=== PATIENT | female | born 1945 | race Hispanic/Latino ===

== ENCOUNTER 2018-11-30 10:03 | Outpatient (CLI) | payer MEDICARE ==
--- NOTE | 2018-11-30 11:03 | MMO ---
Bilateral MAMMO Bilat Diag [facility]. CLINICAL HISTORY: Patient is 73 years old and is seen for diagnostic exam. The patient has the following family history of breast cancer: sister, at age 53, BONE - LIVER. The patient has no personal history of cancer. The patient has a history of right Excisional Biopsy - benign - ?? pt doesn't remember. VIEWS: The views performed were: bilateral craniocaudal with tomosynthesis; bilateral mediolateral oblique with tomosynthesis; and bilateral mediolateral. FILMS COMPARED: The present examination has been compared to prior imaging studies performed at [facility] on 04/03/2015, 04/22/2016, 05/17/2017 and 11/30/2018. MAMMOGRAM FINDINGS: There are scattered fibroglandular densities. Finding 1: There are no mammographic or sonographic abnormalities in the area of palpable concern. The patient is referred back to her clinician. Negative imaging findings should not preclude biopsy if clinical findings are suspicious. Finding 2: There are stable benign appearing calcifications seen in both breasts. There are no suspicious masses, suspicious calcifications, or new areas of architectural distortion. IMPRESSION: FINDING 1: THERE ARE NO MAMMOGRAPHIC ABNORMALITIES IN THE AREA OF PALPABLE CONCERN. THE PATIENT IS REFERRED BACK TO HER CLINICIAN. NEGATIVE IMAGING FINDINGS SHOULD NOT PRECLUDE BIOPSY IF CLINICAL FINDINGS ARE SUSPICIOUS. A ROUTINE FOLLOW-UP MAMMOGRAM IN 1 YEAR IS RECOMMENDED. THE RESULTS OF THIS EXAM WERE SENT TO THE PATIENT. ACR BI-RADS Category 2 - Benign finding MAMMOGRAPHY NOTE: 1. A negative mammogram report should not delay a biopsy if a dominant of clinically suspicious mass is present. 2. Approximately 10% to 15% of breast cancers are not detected by mammography. 3. Adenosis and dense breasts may obscure an underlying neoplasm.
--- NOTE | 2018-11-30 11:34 | ULT ---
LIMITED LEFT BREAST ULTRASOUND: DATE: 11/30/2018. PROVIDED CLINICAL HISTORY: Left breast palpable abnormality. FINDINGS: Limited sonographic interrogation was performed of the left breast in the region of palpable concern. The sonographic appearance of the breast parenchyma in this region is normal. IMPRESSION: BIRADS CATEGORY 1 - NEGATIVE. Negative imaging findings should not preclude further evaluation of a clinically suspicious area. The patient is referred back to her clinician. POS: OFF
== END 2018-11-30 10:04 | disposition home or self-care (01) ==
LOC: BICMAMMO 10:03
PROVIDERS: ATTEND Obstetrics & Gynecology
DX: N63.0 Unspecified lump in unspecified breast (principal); Z80.3 Family history of malignant neoplasm of breast; Z80.0 Family history of malignant neoplasm of digestive organs; Z80.8 Family history of malignant neoplasm of other organs or systems
CPT/HCPCS: 76642; 77066; G0279

== ENCOUNTER 2018-12-25 17:00 | Outpatient (CLI) | payer MEDICARE | END 2018-12-25 17:01 | LOC: SLEEPLAB 17:00 | PROVIDERS: ATTEND Otolaryngology Otolaryngic Allergy | DX: G47.33 Obstructive sleep apnea (adult) (pediatric) (principal); G47.9 Sleep disorder, unspecified; R06.83 Snoring | CPT/HCPCS: 95806 ==

== ENCOUNTER 2019-03-29 10:31 | Outpatient (CLI) | payer MEDICARE ==
[2019-03-29 11:59] LABS: Hemoglobin 12.1 g/dL (12.0-16.0); Mean Corpuscular Hemoglobin 30.1 pg (27.0-31.0); Mean Corpuscular Volume 88.4 fL (78.0-98.0); Mean Platelet Volume 6.5 fL (7.4-10.4); Platelet Count 370 thou/uL (130-400); RBC Distribution Width 11.7 % (11.5-14.5); Red Blood Cell (RBC) Count 4.02 mill/uL (4.20-5.40); White Blood Cell (WBC) Count 6.5 thou/uL (4.8-10.8)
[2019-03-29 12:23] LABS: ALT (SGPT) 26 U/L (8-55); AST (SGOT) 22 U/L (5-34); Albumin 4.6 g/dL (3.4-4.8); Alkaline Phosphatase 62 U/L (40-110); Anion Gap 10 mmol/L (10-20); BUN (Urea Nitrogen) 20 mg/dL (9.8-20.1); Bilirubin, Total 0.3 mg/dL (0.2-1.2); Calc. Creatinine Clearance 0 mL/min (70-130); Carbon Dioxide 30 mmol/L (23-31); Chloride 104 mmol/L (98-107); Estimated GFR-MDRD 69; Globulin 2.6 g/dL (2.4-3.5); Glucose 105 mg/dL (83-110); Potassium 4.3 mmol/L (3.5-5.1); Protein, Total 7.2 g/dL (6.0-8.3); Sodium 140 mmol/L (136-145)
--- NOTE | 2019-03-29 23:53 | EKG ---
Test Reason : Blood Pressure : / mmHG Vent. Rate : 081 BPM Atrial Rate : 081 BPM P-R Int : 146 ms QRS Dur : 080 ms QT Int : 392 ms P-R-T Axes : 057 -07 029 degrees QTc Int : 455 ms Normal sinus rhythm Nonspecific T wave abnormality Abnormal ECG When compared with ECG of 21-SEP-2013 12:10, No significant change was found Confirmed by Tiara WATTS ([id number]) on 03/29/2019 11:52:48 PM Referred By: NELY Confirmed By:Tiara WATTS
== END 2019-03-29 10:32 | disposition home or self-care (01) ==
LOC: LABBT 10:31
PROVIDERS: ATTEND Obstetrics & Gynecology
DX: Z01.818 Encounter for other preprocedural examination (principal); N81.2 Incomplete uterovaginal prolapse
CPT/HCPCS: 80053; 85027; 86850; 86900; 86901; 93005; 93010

== ENCOUNTER 2019-04-02 05:53 | Inpatient (IN) | payer MEDICARE ==
[2019-03-29 10:58] VITALS: BMI 29.0
--- NOTE | 2019-03-29 21:50 | HP ---
DATE OF PLANNED SURGERY: 04/02/2019. HISTORY OF PRESENT ILLNESS: Ms. Neff is a 73-year-old Latin-La[place] female, who has symptoms of pelvic prolapse and urinary incontinence. She has issues with vaginal bulging and also where she has both urge and stress incontinence issues. Her urine continuously flow out. We did try anticholinergics for some of the symptomatology including Myrbetriq and VESIcare. She did not tolerate these medications due to elevation in her glucose levels due to her diabetes. Due to this, she did have formal urodynamic studies and the findings were consistent with an intrinsic sphincter defect with urethral pressure profile of 22. PAST MEDICAL HISTORY: Noted for adult onset diabetes, hyperlipidemia, chronic hypertension, urinary incontinence. PAST SURGICAL HISTORY: Cataract surgery and breast biopsy. ALLERGIES: HAS NO KNOWN DRUG ALLERGIES. CURRENT MEDICATIONS: Fenofibric 135 mg tablet daily, glimepiride 4 mg tablet one p.o. daily for diabetes, Humalog subcu premeal sliding scale, metformin 1000 mg tablet daily, Synthroid 100 mcg tablet daily, tablet daily, Victoza injection daily 1.8 mg. FAMILY HISTORY: Heart disease. No breast or ovarian cancer reported. Diabetes in the family. Hypertension in the family. SOCIAL HISTORY: Nonsmoker. . OBSTETRICAL HISTORY: Two spontaneous vaginal deliveries. Normal Pap smear back in 2018. PHYSICAL EXAMINATION: VITAL SIGNS: The patient's height 5 feet, weight 149 with BMI 29.1, blood pressure 136/72, pulse 76, O2 saturation on room air 98%, respiratory rate 18. HEENT: Within normal limits. CHEST: Clear to auscultation. HEART: Regular rate and rhythm. S1 and S2 heart sounds. No murmurs, rubs, or gallops. ABDOMEN: Soft, nontender, nondistended with no palpable masses. PELVIC: Vulva and vagina had no lesions. She has a grade 2 cystocele with a hypermobile UV angle. No abnormal discharge to the cervix seen. Uterus was small and mobile with grade 2 prolapse. Adnexa, nontender with no masses. ASSESSMENT: This is a 73-year-old Latin-La[place] female with diabetes with a grade 2 cystocele and uterine prolapse with urinary incontinence issues. She has what appears to be more of an intrinsic sphincter defect. She had some urge incontinence symptoms, but was not been able to tolerate any anticholinergic agent or Myrbetriq due to abnormalization of her glucose levels and also hypertension. The urodynamics showed her to have a postvoid residual less than 25 mL. She had no abnormal uterine contractions during the procedure. Her urethral pressure profile was 22, consistent with intrinsic sphincter defect. PLAN: Plan is to proceed with robotic-assisted total laparoscopic hysterectomy with BSO with anterior repair along with Advantage Fit TVT and cystoscopy. Risks and benefits of procedure were discussed in detail. She is set for surgery on 04/02. Job ID: [id number]
[2019-04-02] MEDS ORDERED: Gabapentin 300 MG CAP ONE (06:11)
[2019-04-02] MEDS ORDERED: Famotidine/PF 20 mg/2ml Vial ONE (06:11)
[2019-04-02] MEDS ORDERED: CeleCOXIB 100 MG CAP ONE (06:11)
[2019-04-02] MEDS ORDERED: Fentanyl 100 MCG/2 ML VIAL ONE (06:36)
[2019-04-02] MEDS ORDERED: Lidocaine 1% w/Epinephrine 1:100K 20 ML VIAL ONE (06:48)
[2019-04-02] MEDS ORDERED: Bupivacaine HCl 0.5%/Epinephrine 1:200,000/PF 30 ml Vial ONE (06:48)
[2019-04-02] MEDS ORDERED: Midazolam HCl 2 mg/2 ml Vial ONE (07:07)
[2019-04-02] MEDS ORDERED: PACU-Morphine 4MG/ML VIAL SLOW IVP PRN (09:41)
[2019-04-02] MEDS ORDERED: Promethazine HCl 25 MG/ML VIAL SLOW IVP PRN (09:41)
[2019-04-02] MEDS ORDERED: Meperidine HCl/PF 25 MG/ML VIAL SLOW IVP PRN (09:41)
[2019-04-02] MEDS ORDERED: Promethazine HCl 25 MG/ML VIAL IM PRN ×2 (09:41→10:05)
[2019-04-02] MEDS ORDERED: diphenhydrAMINE 25 MG CAP PO PRN (10:05)
[2019-04-02] MEDS ORDERED: Ondansetron PF 4 MG/2 ML Vial IVP PRN (10:05)
[2019-04-02] MEDS ORDERED: Dextrose 50% Abboject 50 ML SYRINGE SLOW IVP PRN (10:05)
[2019-04-02] MEDS ORDERED: Morphine 2 MG/ML SYRINGE SLOW IVP PRN (10:05)
[2019-04-02] MEDS ORDERED: Bisacodyl 10 MG SUPP PR PRN (10:05)
[2019-04-02] MEDS ORDERED: Zolpidem Tartrate 5 MG TAB PO PRN (10:05)
[2019-04-02] MEDS ORDERED: Simethicone Chewable 80 MG TAB PO PRN (10:05)
[2019-04-02] MEDS ORDERED: Dextrose 5% in Water 1,000 ML IV PRN (10:05)
[2019-04-02] MEDS ORDERED: Insulin Regular 300 UNITS/3 ML VIAL SC PRN (10:05)
[2019-04-02] MEDS ORDERED: traMADol HCl 50 MG TAB PO PRN ×2 (10:05)
[2019-04-02] MEDS ORDERED: Meperidine HCl/PF 25 MG/ML VIAL ONE (11:23)
--- NOTE | 2019-04-02 12:08 | OP ---
DATE OF PROCEDURE: 04/02/2019 PREOPERATIVE DIAGNOSES: 1. A 73-year-old female with grade 2 uterine prolapse, grade 2 cystocele. 2. Genuine stress incontinence with low urethral pressure profile numbers. POSTOPERATIVE DIAGNOSES: 1. A 73-year-old female with grade 2 uterine prolapse, grade 2 cystocele. 2. Genuine stress incontinence with low urethral pressure profile numbers. PROCEDURES PERFORMED: 1. Robotic total laparoscopic hysterectomy with bilateral salpingo-oophorectomy. 2. Advantage Fit TVT with cysto. WORK TICKET DISTRIBUTOR SURGEON: Vilma Casrto PA-C ESTIMATED BLOOD LOSS: 50 mL. ANESTHESIA: General endotracheal. PATHOLOGY: Uterus, cervix, tubes, and ovaries. FINDINGS: 1. Postmenopausal uterus, bilateral tubes, and ovaries. 2. Floppy bladder noted intraperitoneally. 3. Cystoscopy of bladder post TVT procedure showed no evidence of mucosal injury, it was watertight with no evidence of perforation of mesh into the bladder tissue. Bilateral UOs noted with efflux visualized. Clear urine present. DISPOSITION: Recovery room, stable. DESCRIPTION OF PROCEDURE: The patient previously received informed consent in regard to surgery. She was taken back to the operating room, where she received a general endotracheal anesthetic agent without complications. She was placed in the dorsal lithotomy position with the use of Souleymane stirrups. At this time, then she was prepped and draped in usual sterile fashion. A side-arm speculum was placed in the vagina. The cervix was grasped with single-tooth tenaculum. The uterus sounded to 7 cm. A size 6 cm DELMY uterine manipulator with 3.5 cm cervical cup was placed. Tenaculum and speculum had been removed. Steele catheter had been placed during this time. Attention was then turned to the abdomen, where perspective trocar sites were infiltrated with 0.5% Marcaine with epinephrine. A 12-mm supraumbilical incision was made. Veress needle was entered into the peritoneal cavity. The patient's pressure was less than 5 mm. The abdomen was insufflated with the patient's pressure of 15 with approximately 4.5 L of gas. Veress needle was removed. A size 12-mm trocar was then placed, and the laparoscope was introduced through trocar sleeve confirming proper entry. Additional bilateral lower quadrant 8-mm trocars were placed along with the right upper quadrant 11-mm food trades assistants port. The patient was placed in Trendelenburg position. Robot was docked. I then scrubbed and proceeded to carry out the surgery with operative console while my assistants remained at the bedside. The uterus was elevated by my food trades assistants. The left IP ligament was identified. It was coagulated, hugging close to the ovary with bipolar fenestrated cautery. This was transected and serial coagulation of the broad ligament hugging close to uterine specimen was carried out until the left round ligament was reached. It was coagulated and transected. The anterior leaf of the broad ligament was entered and the vesicouterine peritoneum was dissected in layering technique dissecting the bladder past cervical vaginal angles. Uterine vessels on the left side were skeletonized and coagulated in the internal cervical os region. This was then carried out on the right side. Again, the right IP ligament was identified. It was coagulated and transected. Serial coagulation of the broad ligament hugging close to the uterus was carried out until the right round ligament was reached. It was coagulated and transected. The anterior leaf of the broad ligament was then entered and vesicouterine peritoneum again was incised in a layering technique dropping the bladder away from the cervical vaginal angle. The internal cervical os areas had been skeletonized with uterine vessels and they were coagulated and adhered to. The bladder was distended to ensure that the bladder had been safely dissected past the cervical vaginal angle and this was confirmed. Then, the anterior colpotomy was created starting at the 12 o'clock to 3 o'clock and 12 o'clock to 9 o'clock position. The uterus was then elevated. It was completed from 6 o'clock to 9 o'clock and 6 o'clock to 3 o'clock. The specimen was delivered into the vaginal vault. The monopolar scissor was removed and a Arcadio needle drivers was placed in through my port. The vaginal cuff was coagulated in any oozing areas with bipolar fenestrated cautery. Then, my food trades assistants brought in a Stratafix suture and the vaginal cuff was closed in full-thickness closure from the right angle towards the left angle back towards the midline. The suture was cut and removed in the right upper quadrant food trades assistants port. The pelvis was irrigated and inspected. Pedicle sites were all confirmed to be hemostatic. Bilateral ureteral peristalsis was visualized laparoscopically. We then undocked the robot. Trocar sleeves were removed. A deep stitch of 0 Vicryl was placed in a [id number] stitch fashion in the umbilical fascial defect. The remainder of the trocar sites were closed with 4-0 Monocryl subcuticular with Dermabond. We then positioned the patient in dorsal lithotomy position for vaginal surgery. I initially then placed the Steele catheter with bag in place. The urethra was identified and just above the symphysis pubis, behind the symphysis pubis bone, this portion was marked with a marking pen and then 2 cm lateral to midline on the symphysis pubis was marked. The area adherent was hydrodissected with approximately 60 mL of sterile saline with a spinal needle. Then, we had placed a weighted speculum in the vagina and the midportion of the urethra was identified by palpating the Steele bulb. Allis clamps were placed superior and inferiorly to this. A 1.5 cm vertical incision in the mucosa was made in the midline urethral area. The edges were grasped and then these were dissected as submucosal tunnel in the direction of the each intersection of the ischial pubic ramus and the symphysis pubis. The Metzenbaum scissors were perforated in the space of Retzius bilaterally. We then positioned the legs more of a level position in-line with the axilla to decrease the extreme flexion. I then did dimple Advantage Fit TVT trocar and loaded it with the TVT mesh. The trocar was then brought through the previously dissected submucosal tunnel on the patient's left side. My assistants were near the symphysis pubis area. I then placed the handle underneath the symphysis bone and then dropped the handle extreme directions staying in-line with the axilla and the previously marked exit site. My food trades assistants felt the trocar moving through this area and we popped through the previously marked site. The trocar was then backed out in the end of the mesh with a plastic marking that was grasped with a Ibis clamp. This was repeated on the right side. I redirected the trocar 2 times due to an angle that was improved by upping the patient's right leg to drop the symphysis and then we were able to place the trocar in the appropriate previously marked spot. Again, the trocar was pushed through the skin and then that was backed out as my food trades assistants grasped plastic portion of the mesh. Once this had been done, we pulled the plastics up slightly more and then I brought the 70-degree cystoscope in. At this time, the Steele guide had been removed that I had placed this during the placement of the trocars deflecting the bladder to the opposite direction, that Steele guide was removed and then the 70-degree cystoscope was placed. The bladder was distended. There was no evidence of any mesh placement through the bladder wall. The bladder wall was intact. Ureteral orifices were visualized with efflux noted. Cystoscope was removed. Steele catheter was replaced. We then pulled up the TVT mesh with a Enamorado scissor underneath the mid urethra for tension testing and then the mesh was lined up. There was no twist to it. We then cut the plastic lock and the plastic sleeves were removed pulling upward by my assistants. The mesh was then placed on tension over the Enamorado scissor and Enamorado scissor was then removed. The mucosa over this area of the vagina was closed with 2 [id number] stitches of 2-0 Vicryl. After the TVT had been placed to reassess the anterior vaginal vault and there was minimal cystocele remaining from the suspension of the TVT. Therefore, we decided not to attempt the anterior repair, which would be difficult due to the minimization of the defect of the cystocele after the mesh had been secured. The cuffs were secured and hemostatic. Clear urine was draining from the Steele catheter. A moistened Kerlix was placed in the vaginal vault for packing. The patient was awakened from anesthesia and transferred to recovery room in stable condition. Job ID: [id number]
[2019-04-02] MEDS: Acetaminophen 1,000 MG in Premix Bag 1 BAG IVPB SCH ×2 (14:09→20:01)
[2019-04-02] MEDS: Ibuprofen 600 MG TAB PO SCH (20:01)
[2019-04-02] MEDS ORDERED: Insulin Glargine 44 UNITS in Pre-Filled Syringe 1 EACH SC SCH (21:00)
[2019-04-02] MEDS ORDERED: Fenofibrate Nanocrystallized 145 MG TAB PO SCH (21:00)
[2019-04-03] MEDS: Acetaminophen 1,000 MG in Premix Bag 1 BAG IVPB SCH ×2 (02:17→08:43)
[2019-04-03] MEDS: Ibuprofen 600 MG TAB PO SCH (04:44)
[2019-04-03 05:24] LABS: Hemoglobin 10.2 g/dL (12.0-16.0); Mean Corpuscular HGB CONC 34.4 g/dL (32.0-36.0); Mean Corpuscular Hemoglobin 30.9 pg (27.0-31.0); Mean Corpuscular Volume 89.6 fL (78.0-98.0); Mean Platelet Volume 6.1 fL (7.4-10.4); Platelet Count 300 thou/uL (130-400); RBC Distribution Width 11.8 % (11.5-14.5); White Blood Cell (WBC) Count 7.9 thou/uL (4.8-10.8)
[2019-04-03] MEDS ORDERED: Levothyroxine Sodium 100 MCG TAB PO SCH (06:00)
[2019-04-03] MEDS ORDERED: metFORMIN 500 MG TAB PO SCH (08:00)
--- NOTE | 2019-04-03 08:13 | PDOC.EVN ---
Event Note - Event Note Event Note: Tolerating diet. Ambulating/voiding. O:AFVSS. PVR <50 ml...Abdomen is soft snd non distended. trochar sites clean and dry. hct 29.6 % A/P: post op day 1 from robotic tlh/bso/retropubic tvt.. Initial pvr's are progresing well. Recheck again to insure proper bladder emptying well. Plan for discharge home today... F/u 2 and 6 weeks.
[2019-04-03] MEDS ORDERED: Valsartan 80 MG TAB PO SCH (09:00)
[2019-04-03] MEDS ORDERED: LIRAGLUTIDE 1.8 UNIT SC SCH (09:00)
[2019-04-03] MEDS ORDERED: HumaLOG 300 UNITS/3 ML VIAL SC SCH (09:00)
[2019-04-03] MEDS ORDERED: INSULIN GLARGINE HUM REC ANLOG 55 UNIT SC SCH (09:00)
[2019-04-03] MEDS ORDERED: Amlodipine 10 MG TAB PO SCH (09:00)
[2019-04-03] MEDS ORDERED: Hydrochlorothiazide 25 MG TAB PO SCH (09:00)
[2019-04-03] MEDS ORDERED: Aspirin 81 mg Enteric Coated Tablet PO SCH (09:00)
[2019-04-03] MEDS ORDERED: Glimepiride 4 MG TAB PO SCH (09:00)
[2019-04-03 12:35] VITALS: BP 122/57; TEMP 96.8
--- NOTE | 2019-04-03 13:12 | DIS ---
DATE OF ADMISSION: 04/02/2019 DATE OF DISCHARGE: 04/03/2019 DIAGNOSES: 1. Symptomatic pelvic prolapse with cystourethrocele and uterine prolapse. 2. Stress urinary incontinence. PROCEDURES PERFORMED: 1. Robotic total laparoscopic hysterectomy and bilateral salpingo-oophorectomy. 2. Advantage Fit TVT with cystoscopy. SUMMARY OF HOSPITAL COURSE: Ms. Neff is a 73-year-old female, who had grade 2 uterine prolapse and grade 2 to 3 cystocele with urethral hypermobility with urinary incontinence. She underwent a robotic TLH-BSO with Advantage Fit TVT and cystoscopy on 04/02/2019. During the operative procedure after the TVT procedure had been performed following the hysterectomy, there was minimal anterior cystocele remaining. Therefore, anterior repair was not carried out. Postoperatively, the patient has done well. She is ambulating and voiding without difficulty, had a postvoid residual checks x3, which were all less than 50 mL with good voids of 200 to 300 plus. Pain control was adequate with tramadol and ibuprofen. Her glycemic control was managed well with sliding scale moderate range insulin with levels in the 100s. She was discharged the morning of postop day #1 and will resume her routine labs for her diabetes care along with hypertension. She has a followup scheduled in 2 and 6 weeks postoperatively. Pathology is pending at the time of this dictation. Job ID: [id number]
== END 2019-04-03 12:45 | disposition home or self-care (01) | DRG 743 ==
LOC: SDC 05:53 → 3SE 11:50
PROVIDERS: ADMIT Obstetrics & Gynecology; ATTEND Obstetrics & Gynecology
PROC: 0UT24ZZ Resection of Bilateral Ovaries, Percutaneous Endoscopic Approach (ICD-10-PCS; principal; 2019-04-02)
PROC: 0UT74ZZ Resection of Bilateral Fallopian Tubes, Percutaneous Endoscopic Approach (ICD-10-PCS; 2019-04-02)
PROC: 0UT94ZZ Resection of Uterus, Percutaneous Endoscopic Approach (ICD-10-PCS; 2019-04-02)
PROC: 8E0W4CZ Robotic Assisted Procedure of Trunk Region, Percutaneous Endoscopic Approach (ICD-10-PCS; 2019-04-02)
PROC: 0TJB8ZZ Inspection of Bladder, Via Natural or Artificial Opening Endoscopic (ICD-10-PCS; 2019-04-02)
PROC: 0TU Urinary System, Supplement (ICD-10-PCS; 2019-04-02)
DX: N81.4 Uterovaginal prolapse, unspecified (principal); E78.5 Hyperlipidemia, unspecified; I10 Essential (primary) hypertension; R32 Unspecified urinary incontinence; N72 Inflammatory disease of cervix uteri; N81.89 Other female genital prolapse; Z98.49 Cataract extraction status, unspecified eye; N39.3 Stress incontinence (female) (male)
CPT/HCPCS: 36415; 36416; 85027; 88307; J0131; J0670; J0690; J1815; J2175; J2250; J3010; S0028

== ENCOUNTER 2019-08-03 12:01 | Emergency (ER) | payer MEDICARE ==
--- NOTE | 2019-08-03 13:29 | RAD ---
XR Knee Lt 4 View STANDARD HISTORY: Fall, left knee pain FINDINGS: No fracture or dislocation is identified. A joint effusion is noted.
--- NOTE | 2019-08-03 13:30 | RAD ---
( XR Hip Lt 2-3 View HISTORY: Fall, left hip pain FINDINGS: No fracture or dislocation is identified.
--- NOTE | 2019-08-03 13:32 | RAD ---
XR Elbow Lt 4 View STANDARD HISTORY: Fall, left elbow pain FINDINGS: No fracture or dislocation is identified. A tiny olecranon spur is present
[2019-08-03] MEDS ORDERED: HYDROcodone/Acetaminophen 5/325 mg Tablet ONE (14:06)
== END 2019-08-03 14:08 | disposition home or self-care (01) ==
LOC: ERS 12:01
DX: S70.02XA Contusion of left hip, initial encounter (principal); S50.312A Abrasion of left elbow, initial encounter; S80.02XA Contusion of left knee, initial encounter; E11.9 Type 2 diabetes mellitus without complications; E03.9 Hypothyroidism, unspecified; I10 Essential (primary) hypertension; W19.XXXA Unspecified fall, initial encounter

== ENCOUNTER 2020-01-22 13:48 | Outpatient (CLI) | payer MEDICARE ==
--- NOTE | 2020-01-22 15:28 | MRI ---
MRI RIGHT SHOULDER: DATE: 01/22/2020. PROVIDED CLINICAL HISTORY: Right shoulder pain. FINDINGS: Evaluation is extremely limited by patient motion. There is evidence for full-thickness tearing of the conjoined tendon. The long head biceps tendon is insufficiently visualized for comment with regard to integrity. There is a physiologic amount of gl enohumeral joint fluid. There is greater than physiologic subacromial subdeltoid bursal fluid. No g ross labral or articular cartilage abnormality is evident. No definite focal concerning regional mar row or muscular signal abnormality. Acromioclavicular joint osteoarthrosis without significant mass effect upon the subjacent supraspinatus. Rotator cuff muscular volume appears preserved. IMPRESSION: 1. Very limited scan due to motion. 2. 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 3. Acromioclavicular joint osteoarthrosis. POS: BREANN
== END 2020-01-22 13:49 | disposition home or self-care (01) ==
LOC: BICMRI 13:48
PROVIDERS: ATTEND Orthopaedic Surgery
DX: M75.101 Unspecified rotator cuff tear or rupture of right shoulder, not specified as traumatic (principal); M19.011 Primary osteoarthritis, right shoulder; S46.011A Strain of muscle(s) and tendon(s) of the rotator cuff of right shoulder, initial encounter

== ENCOUNTER 2020-03-14 11:54 | Outpatient (CLI) | payer MEDICARE ==
--- NOTE | 2020-03-14 12:51 | BD ---
EXAM: Bone densitometry using DEXA HISTORY: 74 yo female. Screening for postmenopausal osteoporosis FINDINGS: L1--bone mineral density 0.825 g/sq cm; T score -1.5 ; Z score 0.5 L2--bone mineral density 0.893 g/sq cm; T score -1.2 ; Z score 1.0 L3--bone mineral density 0.867 g/sq cm; T score -2.0 ; Z score 0.4 L4--bone mineral density 0.965 g/sq cm; T score -0.9 ; Z score 1.5 Total L1-L4--bone mineral density 0.891 g/sq cm; T score -1.4 ; Z score 0.8 Left femoral neck--bone mineral density0.550; T score -2.7 ; Z score -0.8 Total proximal left femur--bone mineral density 0.733; T score -1.7 ; Z score -0.1 The 10 year fracture risk for a major osteoporotic fracture is 25% and for a hip fracture is 7.1%. IMPRESSION: Osteoporosis
--- NOTE | 2020-03-14 14:25 | MMO ---
Bilateral MAMMO Bilat Screen [facility]. CLINICAL HISTORY: Patient is 74 years old and is seen for screening. The patient has the following family history of breast cancer: sister, at age 53, BONE - LIVER. The patient has no personal history of cancer. The patient has a history of right Excisional Biopsy - benign - ?? pt doesn't remember. VIEWS: The views performed were: bilateral craniocaudal with tomosynthesis and bilateral mediolateral oblique with tomosynthesis. FILMS COMPARED: The present examination has been compared to prior imaging studies performed at [facility] on 04/22/2016, 05/17/2017 and 11/30/2018. This study has been interpreted with the assistance of computer-aided detection. MAMMOGRAM FINDINGS: There are scattered fibroglandular densities. Benign calcifications are noted bilaterally. There are no suspicious masses, suspicious calcifications, or new areas of architectural distortion. IMPRESSION: THERE IS NO MAMMOGRAPHIC EVIDENCE OF MALIGNANCY. A ROUTINE FOLLOW-UP MAMMOGRAM IN 1 YEAR IS RECOMMENDED. THE RESULTS OF THIS EXAM WERE SENT TO THE PATIENT. ACR BI-RADS Category 2 - Benign finding MAMMOGRAPHY NOTE: 1. A negative mammogram report should not delay a biopsy if a dominant of clinically suspicious mass is present. 2. Approximately 10% to 15% of breast cancers are not detected by mammography. 3. Adenosis and dense breasts may obscure an underlying neoplasm. Reported by: SHANNAN BACK MD Electonically Signed: [id number]
== END 2020-03-14 11:55 | disposition home or self-care (01) ==
LOC: BICMAMMO 11:54
PROVIDERS: ATTEND Family Medicine
DX: Z12.31 Encounter for screening mammogram for malignant neoplasm of breast (principal); M81.0 Age-related osteoporosis without current pathological fracture; M85.88 Other specified disorders of bone density and structure, other site; Z80.8 Family history of malignant neoplasm of other organs or systems; Z80.3 Family history of malignant neoplasm of breast
CPT/HCPCS: 77063; 77067; 77080

== ENCOUNTER 2020-08-08 09:02 | Emergency (ER) | payer MEDICARE ==
--- NOTE | 2020-08-08 10:27 | CT ---
CT BRAIN WITHOUT CONTRAST: HISTORY: Headache. COMPARISON: CT brain 08/04/2011. FINDINGS: No acute hemorrhage or infarct. No midline shift or mass effect. Ventricular size and extraaxial CS F spaces are normal. The calvarium is intact. Paranasal sinuses and mastoids are relatively clear. IMPRESSION: No acute intracranial abnormality. POS: HOME
== END 2020-08-08 10:13 | disposition home or self-care (01) ==
LOC: ERS 09:02
DX: R51.9 Headache, unspecified (principal); E11.9 Type 2 diabetes mellitus without complications; E03.9 Hypothyroidism, unspecified; I10 Essential (primary) hypertension; Z79.4 Long term (current) use of insulin; Z79.82 Long term (current) use of aspirin; Z79.899 Other long term (current) drug therapy
CPT/HCPCS: 70450

== ENCOUNTER 2020-10-08 11:43 | Outpatient (CLI) | payer MEDICARE ==
[2020-10-08] MEDS ORDERED: Magnevist 469MG/ML 20 ML VIAL ONE (12:37)
[2020-10-08 13:04] LABS: Estimated GFR-MDRD - POC Greater than 90
== END 2020-10-08 11:44 | disposition home or self-care (01) ==
LOC: BICMRI 11:43
PROVIDERS: ATTEND Nurse Practitioner Acute Care
DX: G43.009 Migraine without aura, not intractable, without status migrainosus (principal)
CPT/HCPCS: 70544; 70553; 82565; A9579

== ENCOUNTER 2021-03-20 12:46 | Outpatient (CLI) | payer MEDICARE | END 2021-03-20 12:47 | disposition home or self-care (01) | LOC: BICMAMMO 12:46 | PROVIDERS: ATTEND Family Medicine | DX: Z12.31 Encounter for screening mammogram for malignant neoplasm of breast (principal); M81.0 Age-related osteoporosis without current pathological fracture; N95.8 Other specified menopausal and perimenopausal disorders; M85.89 Other specified disorders of bone density and structure, multiple sites; Z80.3 Family history of malignant neoplasm of breast | CPT/HCPCS: 77063; 77067; 77080 ==

== ENCOUNTER 2021-11-18 14:38 | Outpatient (CLI) | payer MEDICARE | END 2021-11-18 14:39 | disposition home or self-care (01) | LOC: BICRAD 14:38 | PROVIDERS: ATTEND Family Medicine | DX: M79.671 Pain in right foot (principal); M25.571 Pain in right ankle and joints of right foot; M81.0 Age-related osteoporosis without current pathological fracture; M19.071 Primary osteoarthritis, right ankle and foot ==

== ENCOUNTER 2022-04-28 15:24 | Outpatient (CLI) | payer MEDICARE | END 2022-04-28 15:25 | disposition home or self-care (01) | LOC: BICRAD 15:24 | PROVIDERS: ATTEND Family Medicine | DX: S80.02XA Contusion of left knee, initial encounter (principal) ==

== ENCOUNTER 2022-08-04 11:35 | Emergency (ER) | payer MEDICARE ==
[~2022-08-04 11:35] MED LIST: Iopamidol-370 76% 500 ML 1 ML ONE
[2022-08-04 12:01] LABS: Bilirubin Negative (Negative); Blood, Urine Negative (Negative); Clarity Clear (Clear); Glucose, Urine (Dipstick) Normal (Negative); Ketone, Urine Negative (Negative); Leukocyte Negative Leu/uL (Negative); Nitrite Negative (Negative); Protein, Urine (Dipstick) Negative (Neg-Trace); Specific Gravity, Urine 1.016 (1.002-1.036); Urobilinogen Normal mg/dL (Less than 2)
[2022-08-04 12:10] LABS: #Eosinphils 0.1 thou/uL (0.0-0.7); #Lymphocytes 1.9 thou/uL (1.20-3.40); #Monocytes 0.4 thou/uL (0.11-0.59); #Neutrophils 3.1 thou/uL (1.40-6.50); %Basophils 0.2 % (0.0-1.0); %Eosinophils 1.4 % (0.0-10.0); %Lymphocytes 34.8 % (21.0-51.0); %Monocytes 7.9 % (0.0-10.0); %Neutrophils 55.6 % (42.0-75.0); Hemoglobin 12.4 g/dL (12.0-16.0); Mean Corpuscular HGB CONC 33.7 g/dL (32.0-36.0); Mean Corpuscular Hemoglobin 30.7 pg (27.0-31.0); Mean Corpuscular Volume 91.2 fl (78.0-98.0); Mean Platelet Volume 6.2 fL (7.4-10.4); Platelet Count 442 10x3/uL (130-400); RBC Distribution Width 11.6 % (11.5-14.5); Red Blood Cell (RBC) Count 4.03 mill/uL (4.20-5.40); White Blood Cell (WBC) Count 5.5 10x3/uL (4.8-10.8)
[2022-08-04 12:29] LABS: ALT (SGPT) 24 U/L (8-55); AST (SGOT) 21 U/L (5-34); Albumin 4.5 g/dL (3.4-4.8); Alkaline Phosphatase 69 U/L (40-110); Anion Gap 15 mmol/L (10-20); BUN (Urea Nitrogen) 21 mg/dL (9.8-20.1); Bilirubin, Total 0.5 mg/dL (0.2-1.2); Calc. Creatinine Clearance 0 mL/min (70-130); Calcium 10.6 mg/dL (7.8-10.44); Carbon Dioxide 24 mmol/L (23-31); Chloride 104 mmol/L (98-107); Estimated GFR 73; Globulin 3.1 g/dL (2.4-3.5); Glucose 127 mg/dL (83-110); Potassium 4.5 mmol/L (3.5-5.1); Protein, Total 7.6 g/dL (5.8-8.1); Sodium 138 mmol/L (136-145)
== END 2022-08-04 15:51 | disposition home or self-care (01) ==
LOC: ERS 11:35
DX: R32 Unspecified urinary incontinence (principal); R10.9 Unspecified abdominal pain; E03.9 Hypothyroidism, unspecified; I10 Essential (primary) hypertension; E78.5 Hyperlipidemia, unspecified
CPT/HCPCS: 36415; 74177; 80053; 81003; 85025; Q9967

== ENCOUNTER 2022-12-22 17:28 | Emergency (ER) | payer MEDICARE | END 2022-12-22 19:33 | disposition home or self-care (01) | LOC: ERS 17:28 | DX: M79.605 Pain in left leg (principal); E11.9 Type 2 diabetes mellitus without complications; E03.9 Hypothyroidism, unspecified; I10 Essential (primary) hypertension; E78.5 Hyperlipidemia, unspecified; Z79.82 Long term (current) use of aspirin ==

== ENCOUNTER 2023-02-18 12:11 | Outpatient (CLI) | payer MEDICARE ==
[~2023-02-18 12:11] MED LIST changes: -Iopamidol-370 76% 500 ML 1 ML ONE; +Magnevist 469MG/ML 20 ML VIAL ONE
== END 2023-02-18 12:12 | disposition home or self-care (01) ==
LOC: BICMRI 12:11
PROVIDERS: ATTEND Orthopaedic Surgery
DX: M79.662 Pain in left lower leg (principal); M76.62 Achilles tendinitis, left leg; L91.0 Hypertrophic scar
CPT/HCPCS: A9579

== ENCOUNTER 2023-04-11 13:35 | Emergency (ER) | payer MEDICARE ==
[2023-04-11 16:56] LABS: #Basophils 0.1 thou/uL (0.0-0.2); #Eosinphils 0.1 thou/uL (0.0-0.7); #Monocytes 0.7 thou/uL (0.11-0.59); #Neutrophils 5.2 thou/uL (1.40-6.50); %Basophils 0.6 % (0.0-1.0); %Eosinophils 0.8 % (0.0-10.0); %Lymphocytes 31.4 % (21.0-51.0); %Monocytes 7.8 % (0.0-10.0); %Neutrophils 59.2 % (42.0-75.0); Hematocrit 35.4 % (36.0-47.0); Mean Corpuscular HGB CONC 33.9 g/dL (32.0-36.0); Mean Corpuscular Hemoglobin 30.2 pg (27.0-31.0); Mean Corpuscular Volume 88.9 fl (78.0-98.0); Mean Platelet Volume 8.4 fL (7.4-10.4); Platelet Count 406 10x3/uL (130-400); Red Blood Cell (RBC) Count 3.98 mill/uL (4.20-5.40); White Blood Cell (WBC) Count 8.8 10x3/uL (4.8-10.8)
[2023-04-11] MEDS ORDERED: Morphine 4 MG/ML VIAL ONE (16:58)
[2023-04-11] MEDS ORDERED: Ketorolac Tromethamine 30 MG/ML VIAL ONE (16:59)
[2023-04-11 17:21] LABS: Bacteria/HPF None Seen HPF (None Seen); Bilirubin Negative (Negative); Blood, Urine Negative (Negative); CAUTI Indications for Culture Pelvic or flank pain; Clarity Clear (Clear); Glucose, Urine (Dipstick) Normal (Negative); Ketone, Urine Negative (Negative); Leukocyte Negative Leu/uL (Negative); Nitrite Negative (Negative); Protein, Urine (Dipstick) Negative (Neg-Trace); RBC/HPF 0-3 HPF (0-3); Specific Gravity, Urine 1.009 (1.002-1.036); Squamous Epithelial None Seen HPF (0-3); Urobilinogen Normal mg/dL (Less than 2); WBC/HPF 0-3 HPF (0-3); pH, Urine 7.5 (5.0-9.0)
[2023-04-11 17:23] LABS: Urine Culture Reflex No No
== END 2023-04-11 19:23 | disposition home or self-care (01) ==
LOC: ERS 13:35
DX: S22.080A Wedge compression fracture of T11-T12 vertebra, initial encounter for closed fracture (principal); E11.9 Type 2 diabetes mellitus without complications; E03.9 Hypothyroidism, unspecified; I10 Essential (primary) hypertension; E78.5 Hyperlipidemia, unspecified; X50.0XXA Overexertion from strenuous movement or load, initial encounter
CPT/HCPCS: 74176; 81001; 83880; 85025; 87086; 96374; 96375; J1885; J2270

== ENCOUNTER 2023-04-25 12:47 | Outpatient (CLI) | payer MEDICARE | END 2023-04-25 12:48 | disposition home or self-care (01) | LOC: BICRAD 12:47 | PROVIDERS: ATTEND Surgery | DX: S22.089A Unspecified fracture of T11-T12 vertebra, initial encounter for closed fracture (principal); M43.16 Spondylolisthesis, lumbar region | CPT/HCPCS: 72100 ==

== ENCOUNTER 2023-05-23 14:36 | Outpatient (CLI) | payer MEDICARE | END 2023-05-23 14:37 | disposition home or self-care (01) | LOC: BICRAD 14:36 | PROVIDERS: ATTEND Surgery | DX: S22.089A Unspecified fracture of T11-T12 vertebra, initial encounter for closed fracture (principal); M43.8X4 Other specified deforming dorsopathies, thoracic region | CPT/HCPCS: 72100 ==

== ENCOUNTER 2023-05-27 13:11 | Outpatient (CLI) | payer MEDICARE | END 2023-05-27 13:12 | disposition home or self-care (01) | LOC: BICMAMMO 13:11 | PROVIDERS: ATTEND Family Medicine | DX: Z12.31 Encounter for screening mammogram for malignant neoplasm of breast (principal); Z13.820 Encounter for screening for osteoporosis; M81.0 Age-related osteoporosis without current pathological fracture; Z91.89 Other specified personal risk factors, not elsewhere classified; Z78.0 Asymptomatic menopausal state; Z80.3 Family history of malignant neoplasm of breast; Z80.8 Family history of malignant neoplasm of other organs or systems | CPT/HCPCS: 77063; 77067; 77080 ==

== ENCOUNTER 2023-07-06 11:49 | Outpatient (CLI) | payer MEDICARE | END 2023-07-06 11:50 | disposition home or self-care (01) | LOC: BICRAD 11:49 | PROVIDERS: ATTEND Surgery | DX: S22.089A Unspecified fracture of T11-T12 vertebra, initial encounter for closed fracture (principal); M47.816 Spondylosis without myelopathy or radiculopathy, lumbar region | CPT/HCPCS: 72100 ==

== ENCOUNTER 2025-02-28 10:38 | Emergency (ER) | payer MEDICARE ==
[2025-02-28 12:30] LABS: #Basophils 0.05 10x3/uL (0.0-0.2); #Eosinophils 0.08 10x3/uL (0.0-0.7); #Monocytes 0.63 10x3/uL (0.11-0.59); #Neutrophils 5.75 10x3/uL (1.40-6.50); %Basophils 0.6 % (0.0-1.0); %Eosinophils 0.9 % (0.0-10.0); %Lymphocytes 24.1 % (21.0-51.0); %Monocytes 7.3 % (0.0-10.0); %Neutrophils 66.6 % (42.0-75.0); Hematocrit 36.8 % (36.0-47.0); Hemoglobin 12.2 g/dL (12.0-16.0); Mean Corpuscular Hemoglobin 29.0 pg (27.0-31.0); Mean Corpuscular Volume 87.4 fL (78.0-98.0); Platelet Count 327 10x3/uL (130-400); Red Blood Cell (RBC) Count 4.21 mill/uL (4.20-5.40); White Blood Cell (WBC) Count 8.63 10x3/uL (4.8-10.8)
[2025-02-28 12:40] LABS: Bacteria/HPF Rare-Few HPF (None Seen); CAUTI Indications for Culture Acute Hematuria; Glucose, Urine (Dipstick) Normal (Negative); Leukocyte 25 Leu/uL (Negative); Protein, Urine (Dipstick) Negative (Neg-Trace); RBC/HPF 0-3 HPF (0-3); Specific Gravity, Urine 1.008 (1.002-1.036)
[2025-02-28 12:42] LABS: Urine Culture Reflex No No
[2025-02-28 12:53] LABS: ALT (SGPT) 14 U/L (Less than 34); AST (SGOT) 21 U/L (11-34); Albumin 4.1 g/dL (3.1-4.5); Alkaline Phosphatase 75 U/L (40-110); Anion Gap 9 mmol/L (10-20); BUN (Urea Nitrogen) 13 mg/dL (9.8-20.1); Bilirubin, Total 0.4 mg/dL (0.3-1.2); Calc. Creatinine Clearance 0 mL/min (70-130); Calcium 9.8 mg/dL (7.8-10.44); Carbon Dioxide 27 mmol/L (23-31); Chloride 101 mmol/L (98-107); Globulin 2.9 g/dL (2.4-3.5); Glucose 104 mg/dL (83-110); Lipase 39 U/L (8-78); Potassium 4.1 mmol/L (3.5-5.1); Sodium 133 mmol/L (136-145)
== END 2025-02-28 13:44 | disposition home or self-care (01) ==
LOC: ERS 10:38
DX: N39.0 Urinary tract infection, site not specified (principal)
CPT/HCPCS: 74177; 76705; 80053; 81001; 83690; 85025; 87077; 87086